=== PATIENT | male | born 1970 | race Caucasian/White ===

== ENCOUNTER 2018-06-01 08:22 | Day surgery (SDC) | payer OTHER ==
[2018-05-30 13:43] VITALS: BMI 33.6
[~2018-06-01 08:22] MED LIST: ACETAMINOPHEN 325 MG TABLET (FP) PO PRN; CHONDROITIN SU A/HYALUR SOD 1 KIT IO ONE; EPINEPHrine/PF 1 MG/1 ML (1:1,000) AMPULE SQ ONE; LIDOCAINE HCL 1% PRESERVATIVE FREE - 30ML VIAL IO ONE; TETRACAINE 0.5% OPHTH SOLN 2 ML BOTTLE TP ONE
[2018-06-01] MEDS ORDERED: CYCLOPENTOLATE HCL 1% OPHTH SOLN 2 ML BOTTLE ONE (08:31)
[2018-06-01] MEDS ORDERED: FLURBIPROFEN 0.03% OPHTH SOLN 2.5 ML BOTTLE ONE (08:31)
[2018-06-01] MEDS ORDERED: OFLOXACIN 0.3% OPHTHALMIC SOLUTION 5 ML BOTTLE ONE (08:31)
[2018-06-01] MEDS ORDERED: PHENYLEPHRINE 2.5% OPHTH SOLN 15 ML BOTTLE ONE (08:31)
[2018-06-01] MEDS ORDERED: TROPICAMIDE 1% OPHTH SOLN 15 ML BOTTLE ONE (08:32)
[2018-06-01] MEDS: FLURBIPROFEN 0.03% OPHTH SOLN 2.5 ML BOTTLE OP SCH ×3 (08:40→08:50)
[2018-06-01] MEDS: TROPICAMIDE 1% OPHTH SOLN 15 ML BOTTLE OP SCH ×3 (08:40→08:50)
[2018-06-01] MEDS: PHENYLEPHRINE 2.5% OPHTH SOLN 15 ML BOTTLE OP SCH ×3 (08:40→08:50)
[2018-06-01] MEDS: OFLOXACIN 0.3% OPHTHALMIC SOLUTION 5 ML BOTTLE OP SCH ×3 (08:40→08:50)
[2018-06-01] MEDS: CYCLOPENTOLATE HCL 1% OPHTH SOLN 2 ML BOTTLE OP SCH ×3 (08:40→08:50)
[2018-06-01] MEDS ORDERED: MIDAZOLAM HCL 2 MG/2 ML SINGLE DOSE VIAL ONE (10:25)
[2018-06-01] MEDS ORDERED: CHONDROITIN SU A/HYALUR SOD 1 KIT ONE (10:30)
[2018-06-01] MEDS ORDERED: TETRACAINE 0.5% OPHTH SOLN 2 ML BOTTLE TP ONE (10:37)
[2018-06-01] MEDS ORDERED: CHONDROITIN SU A/HYALUR SOD 1 KIT IO ONE (10:50)
[2018-06-01] MEDS ORDERED: LIDOCAINE HCL 1% PRESERVATIVE FREE - 30ML VIAL IO ONE (10:50)
[2018-06-01] MEDS ORDERED: TRYPAN BLUE 0.5 ML DISP.SYRIN ONE (10:57)
[2018-06-01] MEDS ORDERED: EPINEPHrine/PF 1 MG/1 ML (1:1,000) AMPULE SQ ONE (11:00)
[2018-06-01] MEDS ORDERED: TRYPAN BLUE 0.5 ML DISP.SYRIN IO ONE (11:00)
--- NOTE | 2018-06-01 12:37 | OP ---
DATE OF OPERATION: DATE OF DICTATION: 06/01/2018 PREOPERATIVE DIAGNOSIS: Cataract, right eye. POSTOPERATIVE DIAGNOSIS: Cataract, right eye. PROCEDURE: Phacoemulsification of right cataract with posterior chamber intraocular lens implantation cataract and capsular staining with Trypan blue. SURGEON: Jerrod Gold MD ANESTHESIA: Topical, MAC. COMPLICATIONS: None. PROCEDURE: The patient was brought to the operating room and correctly identified along with the operative site as well as correct intraocular lens power. He was then prepped and draped in the usual sterile fashion including 5% Betadine solution in the conjunctival sac and an eyelid drape. An eyelid speculum was then placed into the right eye. The eye was inspected and a dense anterior cortical cataract was noted at approximately 6 o'clock in the patient's eye. A paracentesis was created and intracameral lidocaine, approximately 0.5 mL was injected intracamerally. Epinephrine 1:1000, 0.1 mL, 1 mL diluted in 4 mL of BSS, was injected as well into the anterior chamber as the patient had used Flomax. A temporal clear corneal wound was created after viscoelastic was injected into the eye. Once again a dense white cortical cataract was noted. The capsulorrhexis was initiated and completed approximately 40%, but upon the area of the cortical cataract the cortical cataract was noted to be fused with the capsule. Using a [place]-Espinoza technique after that area of the capsule was stained with Trypan blue the capsule was pulled inward and the capsulorrhexis was completed past the cortical cataract. The linear cataract was noted to be pulled inward as well. This did, however, leave an irregularly shaped capsulorrhexis in that area. The capsulorrhexis was then completed with Utrata forceps and the nucleus gently hydrodissected with BBS as there was a question about the anterior capsule. The nucleus was then removed with phacoemulsification, care made not to stress the area of the potential anterior capsulorrhexis defect. At the end of the procedure the posterior capsule was noted to be intact. The remaining cortical material was gently irrigated and aspirated from the eye. The viscoelastic was injected to inflate the capsular bag and the lens was injected into the capsular bag. Care was made to orient the haptics away from the area of the anterior capsular defect. Viscoelastic was then irrigated and aspirated from the eye. All wounds were tested and found to be watertight. No suture was placed. The eye was then sufficiently inflated and the lens positioned such that the optic was covered by most of the anterior capsular border. Topical vancomycin given. The eye patched and shielded and the patient discharged from the operating room in stable condition. JERROD GOLD M.D. [id number]
[2018-06-01 13:09] VITALS: BP 121/87; PULSE 75; TEMP 97.9
== END 2018-06-01 12:11 | disposition home or self-care (01) ==
LOC: JASU-SURG 08:22
PROVIDERS: ATTEND Ophthalmology
PROC: 08RJ3JZ Replacement of Right Lens with Synthetic Substitute, Percutaneous Approach (ICD-10-PCS; principal; 2018-06-01 10:00)
DX: H26.9 Unspecified cataract (principal); E11.9 Type 2 diabetes mellitus without complications
CPT/HCPCS: 82962

== ENCOUNTER 2021-01-08 07:22 | Inpatient (IN) | payer OTHER ==
[2021-01-08 07:34] VITALS: BMI 33.6
[2021-01-08] MEDS ORDERED: LACTATED RINGERS SOLUTION 1000 ML INFUS.BAG IV ONE (08:42)
[2021-01-08] MEDS ORDERED: ONDANSETRON 4 MG/2 ML VIAL IVPUSH ONE (08:48)
[2021-01-08] MEDS ORDERED: ACETAMINOPHEN 1000 MG/100 ML VIAL (NON FORMULARY) IVPB ONE (08:48)
[2021-01-08] MEDS ORDERED: ONDANSETRON 4 MG/2 ML VIAL ONE (08:49)
[2021-01-08] MEDS ORDERED: ACETAMINOPHEN INJECTION 100 ML IVPB ONE (08:49)
[2021-01-08] MEDS ORDERED: FAMOTIDINE 20 MG/50 ML IVPB 20 MG/50 ML MG IVPB ONE ×2 (09:27→11:53)
[2021-01-08] MEDS ORDERED: MAG HYDROX/AL HYDROX/SIMETH -MYLANTA- ORAL SUSPENSION PO ONE (09:30)
[2021-01-08 10:48] LABS: INR 0.95 (0.83-1.09); PROTHROMBIN TIME (PATIENT) 11.5 SEC (9.7-13.0)
[2021-01-08 10:52] LABS: BASO % 1.4 % (0-2.0); EOS % 2.7 % (0-4.5); HEMATOCRIT 43.4 % (35.4-49); LYMPH % 26.9 % (8-40); MCH 36.8 pg (25.7-33.7); MEAN CELL VOLUME 99.5 fl (80-96); MEAN PLT VOLUME 9.3 fl (7.5-11.1); MONO % 7.3 % (3.8-10.2); NEUT % 61.7 % (42.8-82.8); PLATELET COUNT 301 K/MM3 (134-434); RBC 4.36 M/mm3 (4.00-5.60); RDW 12.6 % (11.9-15.9); WHITE BLOOD COUNT 9.1 K/mm3 (4.0-10.0)
[2021-01-08 11:07] LABS: CHLORIDE 96 mmol/L (98-107); SODIUM 128 mmol/L (136-145)
[2021-01-08 11:10] LABS: ALBUMIN 3.2 g/dl (3.4-5.0); CALCIUM 8.2 mg/dL (8.5-10.1); CO2 24 mmol/L (21-32); GLUCOSE,RANDOM 242 mg/dL (74-106); LIPASE 492 U/L (73-393)
[2021-01-08 11:13] LABS: CREATININE 0.9 mg/dL (0.55-1.3)
[2021-01-08 11:15] LABS: CHOLESTEROL 366 mg/dL (50-200)
[2021-01-08 11:16] LABS: BILIRUBIN,TOTAL 1.2 mg/dL (0.2-1)
[2021-01-08 11:18] LABS: ALK PHOS 89 U/L (45-117)
[2021-01-08 11:40] LABS: ANION GAP 7 MMOL/L (8-16); BLOOD UREA NITROGEN 10.6 mg/dL (7-18); TOT PROT 7.8 g/dl (6.4-8.2)
[2021-01-08 11:44] LABS: POTASSIUM 7.2 mmol/L (3.5-5.1)
[2021-01-08 11:51] LABS: PH,URINE 5.5 (5.0-8.0); URINE APPEARANCE CLEAR; URINE BILIRUBIN NEGATIVE (NEGATIVE); URINE COLOR DK YELLOW; URINE GLUCOSE (UA) 3+ (NEGATIVE); URINE KETONE TRACE (NEGATIVE); URINE LEUK ESTERASE NEGATIVE (NEGATIVE); URINE NITRITE NEGATIVE (NEGATIVE); URINE PROTEIN TRACE (NEGATIVE); URINE UROBILINOGEN 0.2 mg/dL (0.2-1.0)
[2021-01-08] MEDS ORDERED: MAG HYDROX/AL HYDROX/SIMETH 30 ML UNIT-DOSE CUP ONE (11:52)
[2021-01-08 11:53] LABS: EPI CELLS 8 /uL (0-25.1); HYALINE CASTS 1 /uL (0-3.1); URINE BACTERIA 93 /uL (0-1359); URINE RBC 13 /uL (0-23.9); URINE WBC 3 /uL (0-25.8)
[2021-01-08] MEDS ORDERED: morphine CARPU-JECT 4 MG/1 ML DISP.SYRIN IVPUSH ONE ×2 (12:53→15:34)
[2021-01-08 14:08] LABS: CHLORIDE 95 mmol/L (98-107); SODIUM 129 mmol/L (136-145)
[2021-01-08 14:10] LABS: ANION GAP 5 MMOL/L (8-16); CO2 29 mmol/L (21-32); GLUCOSE,RANDOM 268 mg/dL (74-106)
[2021-01-08 14:13] LABS: CREATININE 0.8 mg/dL (0.55-1.3)
[2021-01-08 14:16] LABS: BLOOD UREA NITROGEN 10.6 mg/dL (7-18)
[2021-01-08] MEDS ORDERED: morphine SULFATE 4 MG/ML VIAL ONE (16:10)
[2021-01-08] MEDS ORDERED: MORPHINE SULFATE 2 MG/ML VIAL IVPUSH PRN (16:37)
[2021-01-08] MEDS ORDERED: LACTATED RINGERS SOLUTION 1,000 ML IV SCH (16:45)
[2021-01-08] MEDS ORDERED: ASCORBIC ACID 500 MG TABLET (FP) ONE ×2 (16:58→22:10)
[2021-01-08] MEDS ORDERED: CHOLECALCIFEROL (VIT D3) 1,000 UNIT (25 MCG) TABLET ONE (16:58)
[2021-01-08] MEDS: ASCORBIC ACID 250 MG TABLET (FP) PO SCH ×2 (17:29→22:09)
[2021-01-08] MEDS: CHOLECALCIFEROL (VIT D3) 1,000 UNIT (25 MCG) TABLET PO SCH (17:29)
[2021-01-08 18:24] LABS: ALBUMIN 3.2 g/dl (3.4-5.0)
[2021-01-08 18:27] LABS: BILIRUBIN,DIRECT 0.1 mg/dL (0.0-0.2)
[2021-01-08 18:29] LABS: BILIRUBIN,TOTAL 1.1 mg/dL (0.2-1)
[2021-01-08 18:30] LABS: ALK PHOS 88 U/L (45-117)
[2021-01-08 18:41] LABS: TOT PROT 6.8 g/dl (6.4-8.2); TRIGLYCERIDES > 4000 mg/dL (0-150)
[2021-01-08] MEDS: INSULIN SLIDING SCALE (NOVOLOG) 1 VIAL SQ SCH (22:04)
[2021-01-09] MEDS: INSULIN SLIDING SCALE (NOVOLOG) 1 VIAL SQ SCH (06:10)
[2021-01-09] MEDS ORDERED: INSULIN DRIP - PLEASE ORDER UNDER SETS NR ONE (07:53)
[2021-01-09] MEDS ORDERED: DEXTROSE 5%-LACTATED RINGERS 990 ML with POTASSIUM CHLORIDE 20 MEQ IV SCH (08:00)
[2021-01-09 09:10] LABS: BASO % 0.6 % (0-2.0); EOS % 3.4 % (0-4.5); HEMATOCRIT 39.5 % (35.4-49); HEMOGLOBIN 13.8 GM/dL (11.7-16.9); LYMPH % 21.1 % (8-40); MCH 35.3 pg (25.7-33.7); MEAN CELL VOLUME 101.1 fl (80-96); MEAN PLT VOLUME 8.9 fl (7.5-11.1); MONO % 6.7 % (3.8-10.2); NEUT % 68.2 % (42.8-82.8); PLATELET COUNT 219 K/MM3 (134-434); RBC 3.91 M/mm3 (4.00-5.60); WHITE BLOOD COUNT 9.5 K/mm3 (4.0-10.0)
[2021-01-09 09:48] LABS: POTASSIUM 3.7 mmol/L (3.5-5.1)
[2021-01-09 10:00] LABS: TOT PROT 6.3 g/dl (6.4-8.2)
[2021-01-09] MEDS ORDERED: MULTIVITAMINS (DAILY MVI) TABLET (FP) PO SCH (10:00)
[2021-01-09] MEDS ORDERED: ENOXAPARIN NA (PORCINE) 40 MG/0.4 ML DISP.SYRIN SQ SCH (10:00)
[2021-01-09] MEDS ORDERED: FOLIC ACID 1 MG TABLET (FP) PO SCH (10:00)
[2021-01-09] MEDS ORDERED: THIAMINE HCL 100 MG TABLET (FP) PO SCH (10:00)
[2021-01-09 10:03] LABS: CREATININE 0.7 mg/dL (0.55-1.3)
[2021-01-09 10:04] LABS: MAGNESIUM 1.6 mg/dL (1.8-2.4)
[2021-01-09 10:07] LABS: CALCIUM 8.3 mg/dL (8.5-10.1)
[2021-01-09 10:08] LABS: ALBUMIN 3.1 g/dl (3.4-5.0); BLOOD UREA NITROGEN 8.3 mg/dL (7-18)
[2021-01-09 10:11] LABS: PHOSPHOROUS 2.8 mg/dL (2.5-4.9)
[2021-01-09] MEDS ORDERED: THIAMINE HCL 200 MG/2 ML VIAL IVPB ONE (10:15)
[2021-01-09] MEDS: CHOLECALCIFEROL (VIT D3) 1,000 UNIT (25 MCG) TABLET PO SCH (10:45)
[2021-01-09] MEDS: ASCORBIC ACID 250 MG TABLET (FP) PO SCH ×2 (10:45→22:00)
[2021-01-09 15:32] LABS: POTASSIUM 3.6 mmol/L (3.5-5.1)
[2021-01-09 15:33] LABS: CALCIUM 8.5 mg/dL (8.5-10.1)
[2021-01-09 15:34] LABS: BLOOD UREA NITROGEN 8.6 mg/dL (7-18)
[2021-01-09 15:37] LABS: CREATININE 0.7 mg/dL (0.55-1.3)
[2021-01-09] MEDS ORDERED: INSULIN REGULAR HUMAN 100 UNITS/ML *VIAL* (FOR IVP) IVPUSH ONE (17:14)
[2021-01-09] MEDS ORDERED: DEXTROSE 50%-WATER - 25 GM/50 ML VIAL IVPUSH PRN (17:14)
[2021-01-09] MEDS ORDERED: INSULIN REGULAR 100 UNITS in SODIUM CHLORIDE 99 ML IVPB SCH (17:15)
[2021-01-09 17:26] LABS: POTASSIUM 3.8 mmol/L (3.5-5.1)
[2021-01-09 17:27] LABS: CALCIUM 8.4 mg/dL (8.5-10.1)
[2021-01-09 17:32] LABS: CREATININE 0.7 mg/dL (0.55-1.3)
[2021-01-09] MEDS: POTASSIUM CHLORIDE 20 MEQ in DEXTROSE 5%-LACTATED RINGERS 990 ML IV SCH (17:47)
[2021-01-09] MEDS ORDERED: PT OWN MED DRAWER 7, Y5N ONE (21:05)
[2021-01-09 21:19] LABS: POTASSIUM 3.5 mmol/L (3.5-5.1)
[2021-01-09 21:20] LABS: CALCIUM 8.4 mg/dL (8.5-10.1)
[2021-01-09 21:21] LABS: BLOOD UREA NITROGEN 8.6 mg/dL (7-18)
[2021-01-09 21:24] LABS: CREATININE 0.9 mg/dL (0.55-1.3)
[2021-01-09] MEDS ORDERED: CHLORHEXIDINE GLUCONATE 4% CLEANSER FOR DECOLONIZATION TP SCH (22:00)
[2021-01-09] MEDS: MUPIROCIN 2% TOPICAL OINTMENT FOR DECOLONIZATION NS SCH ×2 (22:00→23:04)
[2021-01-10 01:17] LABS: POTASSIUM 3.2 mmol/L (3.5-5.1)
[2021-01-10 01:18] LABS: CALCIUM 8.2 mg/dL (8.5-10.1)
[2021-01-10 01:19] LABS: BLOOD UREA NITROGEN 8.6 mg/dL (7-18)
[2021-01-10 01:22] LABS: CREATININE 0.7 mg/dL (0.55-1.3)
[2021-01-10] MEDS ORDERED: POTASSIUM CHLORIDE TABS 20 MEQ TABLET.ER (FP) PO ONE (01:45)
[2021-01-10] MEDS ORDERED: MAGNESIUM SULF 50% (8.12 MEQ/2 ML-1 GM VIAL) IVPB ONE (01:45)
[2021-01-10] MEDS ORDERED: KCL 10 MEQ IVPB 10 MEQ/100 ML INFUS.BAG IVPB SCH (02:00)
[2021-01-10 06:02] LABS: POTASSIUM 3.8 mmol/L (3.5-5.1)
[2021-01-10 06:04] LABS: CALCIUM 8.2 mg/dL (8.5-10.1)
[2021-01-10 06:05] LABS: ALBUMIN 2.8 g/dl (3.4-5.0); BLOOD UREA NITROGEN 6.3 mg/dL (7-18); MAGNESIUM 2.2 mg/dL (1.8-2.4)
[2021-01-10 06:08] LABS: CREATININE 0.6 mg/dL (0.55-1.3); PHOSPHOROUS 3.6 mg/dL (2.5-4.9)
[2021-01-10 06:09] LABS: BILIRUBIN,TOTAL 0.6 mg/dL (0.2-1); TOT PROT 5.9 g/dl (6.4-8.2)
[2021-01-10 06:27] LABS: BASO % 0.6 % (0-2.0); EOS % 4.8 % (0-4.5); HEMATOCRIT 35.7 % (35.4-49); HEMOGLOBIN 12.6 GM/dL (11.7-16.9); LYMPH % 29.5 % (8-40); MCH 35.3 pg (25.7-33.7); MCHC 35.2 g/dl (32.0-35.9); MEAN CELL VOLUME 100.4 fl (80-96); MEAN PLT VOLUME 8.9 fl (7.5-11.1); MONO % 8.1 % (3.8-10.2); PLATELET COUNT 218 K/MM3 (134-434); RBC 3.55 M/mm3 (4.00-5.60); WHITE BLOOD COUNT 6.1 K/mm3 (4.0-10.0)
[2021-01-10] MEDS ORDERED: GEMFIBROZIL 600 MG TABLET (FP) PO SCH (07:00)
[2021-01-10] MEDS ORDERED: MORPHINE SULFATE 2 MG/ML VIAL IVPUSH PRN (08:38)
[2021-01-10] MEDS ORDERED: PT OWN MED DRAWER 7, Y5N ONE (09:23)
[2021-01-10 09:44] LABS: POTASSIUM 4.2 mmol/L (3.5-5.1)
[2021-01-10 09:47] LABS: CALCIUM 8.4 mg/dL (8.5-10.1)
[2021-01-10 09:48] LABS: BLOOD UREA NITROGEN 6.2 mg/dL (7-18)
[2021-01-10 09:51] LABS: CREATININE 0.7 mg/dL (0.55-1.3)
[2021-01-10] MEDS: MUPIROCIN 2% TOPICAL OINTMENT FOR DECOLONIZATION NS SCH (10:00)
[2021-01-10] MEDS ORDERED: ENOXAPARIN NA (PORCINE) 40 MG/0.4 ML DISP.SYRIN SQ SCH (10:00)
[2021-01-10] MEDS ORDERED: MULTIVITAMINS (DAILY MVI) TABLET (FP) PO SCH (10:00)
[2021-01-10] MEDS ORDERED: FENOFIBRIC ACID 135 MG CAP PO SCH (10:00)
[2021-01-10] MEDS ORDERED: FOLIC ACID 1 MG TABLET (FP) PO SCH (10:00)
[2021-01-10] MEDS ORDERED: THIAMINE HCL 100 MG TABLET (FP) PO SCH (10:00)
[2021-01-10] MEDS ORDERED: ASCORBIC ACID 250 MG TABLET (FP) PO SCH (10:00)
[2021-01-10] MEDS ORDERED: CHOLECALCIFEROL (VIT D3) 1,000 UNIT (25 MCG) TABLET PO SCH (10:00)
[2021-01-10] MEDS: POTASSIUM CHLORIDE 20 MEQ in DEXTROSE 5%-LACTATED RINGERS 990 ML IV SCH (12:00)
[2021-01-10 13:09] VITALS: BP 154/86
[2021-01-10 14:14] LABS: POTASSIUM 4.2 mmol/L (3.5-5.1)
[2021-01-10 14:16] LABS: BLOOD UREA NITROGEN 7.8 mg/dL (7-18); CALCIUM 8.9 mg/dL (8.5-10.1)
[2021-01-10 14:19] LABS: CREATININE 0.7 mg/dL (0.55-1.3)
[2021-01-10 14:39] VITALS: PULSE 72; TEMP 98.5
[2021-01-10] MEDS ORDERED: POTASSIUM CHLORIDE 20 MEQ in DEXTROSE 5%-LACTATED RINGERS 990 ML IV SCH (18:00)
== END 2021-01-10 15:02 | disposition left against medical advice (07) | DRG 282 ==
LOC: JER 07:22 → JERBED 16:11 → J8W 23:41 → JICU 01-09 16:55
PROVIDERS: ADMIT Internal Medicine; ATTEND Internal Medicine
DX: K85.20 Alcohol induced acute pancreatitis without necrosis or infection (principal); U07.1 COVID-19; E11.9 Type 2 diabetes mellitus without complications; I10 Essential (primary) hypertension; E66.9 Obesity, unspecified; F10.20 Alcohol dependence, uncomplicated; E86.1 Hypovolemia; K76.0 Fatty (change of) liver, not elsewhere classified; E78.1 Pure hyperglyceridemia; E78.5 Hyperlipidemia, unspecified; N40.0 Benign prostatic hyperplasia without lower urinary tract symptoms; Z68.33 Body mass index [BMI] 33.0-33.9, adult
CPT/HCPCS: 36415; 71046-TC-FY; 74177-TC; 76705-TC; 80048; 80053; 80076; 81003; 82465; 82550; 82553; 82565; 82962; 83036; 83605; 83690; 83735; 84100; 84300; 84478; 84484; 85025; 85610; 87086; 93005; 93010; 97116-GP; 97161-GP; 99285-25; C9803; J0131; Q9967; U0003